=== PATIENT | male | born 1965 | race African-American/Black ===

== ENCOUNTER 2018-11-05 20:01 | Emergency (ER) | payer SELFPAY ==
[~2018-11-05] VITALS: Ht 172.7 cm; Wt 68.5 kg
[2018-11-05] MEDS ORDERED: SODIUM CHLORIDE 0.9% 1,000 ML IV ONE (20:28)
[2018-11-05] MEDS ORDERED: NALOXONE HCL 1 MG/ML 2ML VIAL IV ONE (20:30)
[2018-11-05] MEDS ORDERED: NALOXONE HCL 1 MG/ML 2ML VIAL ONE (20:35)
[2018-11-05 20:53] LABS: BASOPHILS % 0.6 % (0.0-2.0); EOSINOPHILS % 5.6 % (0.0-5.0); HEMATOCRIT. 39.6 % (42.0-52.0); HEMOGLOBIN. 13.3 g/dL (14.0-18.0); LYMPHOCYTES % 19.7 % (20.0-50.0); MEAN CORPUSCULAR HEMOGLOBIN 30.5 pg (28.0-32.0); MEAN CORPUSCULAR VOLUME 90.9 fL (80.0-94.0); MEAN PLATELET VOLUME 7.5 fl (7.4-10.4); MONOCYTES % 8.4 % (2.0-8.0); NEUTROPHILS % 65.7 % (40.0-76.0); PLATELET 321 x1000/uL (130-400); RED BLOOD CELL COUNT 4.36 mill/uL (4.7-6.1); RED CELL DISTRIBUTION WIDTH 13.6 % (11.6-14.6)
[2018-11-05 20:59] LABS: CHLORIDE 102 mEq/L (98-107)
[2018-11-05 21:03] LABS: ETHANOL BLOOD 92 mg/dL
[2018-11-05 21:03] LABS: CLARITY URINE CLOUDY (CLEAR); COLOR URINE YELLOW (YELLOW); KETONES URINE NEGATIVE (NEGATIVE); LEUKOCYTE ESTERASE URINE NEGATIVE (NEGATIVE); NITRITE URINE NEGATIVE (NEGATIVE); OCCULT BLOOD URINE NEGATIVE (NEGATIVE); PROTEIN URINE 2+ (NEGATIVE); SPECIFIC GRAVITY URINE 1.022 (1.005-1.030)
[2018-11-05 21:22] LABS: CANNABINOID URINE SCREEN NEGATIVE (NEGATIVE); METHADONE URINE SCREEN NEGATIVE (NEGATIVE); OPIATES URINE SCREEN NEGATIVE (NEGATIVE); PHENCYCLIDINE URINE SCREEN NEGATIVE (NEGATIVE)
[2018-11-05 21:23] LABS: *AMPHETAMINES SCREEN URINE PRESUMTIVE POSITIVE (NEGATIVE); *BARBITURATES SCREEN URINE NEGATIVE (NEGATIVE); *BENZODIAZEPINES SCREEN URINE PRESUMTIVE POSITIVE (NEGATIVE); *COCAINE SCREEN URINE NEGATIVE (NEGATIVE)
[2018-11-05] MEDS ORDERED: DEXTROSE 50% WATER 50ML SYRINGE IV SCH (21:58)
[2018-11-05] MEDS ORDERED: POTASSIUM CHLORIDE INJ 40 MEQ in DEXT 5% WATER 250 ML IV ONE (22:00)
[2018-11-06] MEDS ORDERED: LORAZEPAM 2MG/ML CPJ IM ONE (03:00)
[2018-11-06] MEDS ORDERED: ZIPRASIDONE MESYLATE 20MG/VIAL IM ONE (03:15)
[2018-11-06] MEDS ORDERED: DIPHENHYDRAMINE 50MG/ML VIAL IM PRN (03:15)
[2018-11-06 14:55] VITALS: BP 153/86
== END 2018-11-06 15:38 | disposition home or self-care (01) ==
LOC: ER 20:01
DX: G93.40 Encephalopathy, unspecified (principal); F10.129 Alcohol abuse with intoxication, unspecified; Y90.4 Blood alcohol level of 80-99 mg/100 ml; F19.10 Other psychoactive substance abuse, uncomplicated; F17.200 Nicotine dependence, unspecified, uncomplicated
CPT/HCPCS: 36415; 70450; 80053; 80305; 81003; 82962; 85025; 96361; 96365; 96366; 96372; 96375; 99284; G0482; J1200; J2060; J2310; J3480; J3486; J7030; J7060